=== PATIENT | female | born 1970 | race American Indian/Alaskan Native ===

== ENCOUNTER 2020-08-31 23:55 | Emergency (ER) | payer SELFPAY ==
[2020-09-01 00:41] LABS: Bilirubin,Urine NEG (Negative); Blood,Urine NEG (Negative); Color,Urine Yellow (Yellow); Mucus,Urine 3+ /HPF; Protein,Urine <15 mg/dL mg/dL (Negative)
[2020-09-01 00:44] LABS: HCG Qualitative,Urine Negative (Negative)
[2020-09-01 01:35] LABS: Basophils % (Auto) 0.2 % (0.0-1.8); Eosinophils # (Auto) 0.1 K/mm3 (0.0-0.4); Eosinophils % (Auto) 0.9 % (0.0-4.3); Hemoglobin 12.3 gm/dl (10.1-14.3); Lymphocytes # (Auto) 1.3 K/mm3 (1.2-5.4); Lymphocytes % (Auto) 10.9 % (13.4-35.0); Mean Corpuscular HGB Conc 33 % (30-34); Mean Corpuscular Volume 88 fl (79-97); Monocytes # (Auto) 0.8 K/mm3 (0.0-0.8); Monocytes % (Auto) 6.8 % (0.0-7.3); Platelet Count 239 K/mm3 (140-440); Red Blood Count 4.19 M/mm3 (3.65-5.03); Red Cell Distribution Width 14.5 % (13.2-15.2)
[2020-09-01 01:45] LABS: Alanine Aminotransferase 18 units/L (7-56); Albumin 4.1 g/dL (3.9-5); BUN/Creatinine Ratio 14; Blood Urea Nitrogen 11 mg/dL (7-17); Calcium 9.2 mg/dL (8.4-10.2); Hemolysis Index 3
[2020-09-01] MEDS ORDERED: MORPHINE 4 MG/1 ML INJ IV ONE (02:25)
[2020-09-01] MEDS ORDERED: ONDANSETRON 4 MG/2 ML INJ IV ONE (02:25)
--- NOTE | 2020-09-01 03:31 | Cat Scan Report ---
CT ABDOMEN AND PELVIS WITH CONTRAST HISTORY: Left lower quadrant abdominal pain COMPARISON: None TECHNIQUE: Routine abdominal and pelvic CT exam performed following intravenous contrast administrat ion. The patient received 100 mL IV Omnipaque 300. All CT scans at this location are performed using CT dose reduction for ALARA by means of automated exposure control. FINDINGS: CT ABDOMEN: Lung Bases: No significant abnormality. Liver: No significant abnormality. Biliary: No significant abnormality. Spleen: No significant abnormality. Unenlarged. Pancreas: No significant abnormality. Adrenals: No significant abnormality. Kidneys: No significant abnormality. Lymphatics: No lymphadenopathy. Vasculature: No significant abnormality. Bowel/Peritoneum: No significant abnormality. No free air. No free fluid. Normal appendix. CT PELVIC: : The uterus is enlarged and contains multiple masses consistent with uterine fibroids, some of whi ch are pedunculated. Lymphatics: No lymphadenopathy. Osseous Structures: No aggressive appearing osseous lesions. There is moderate degenerative disc dise ase at L5-S1. Additional Findings: None IMPRESSION: 1. No acute findings. 2. Significantly enlarged uterus with multiple masses or fibroids. Signer Name: Bossman Narvaez MD Signed: 09/01/2020 3:26 AM Workstation Name: [email or web address]
--- NOTE | 2020-09-01 04:01 | Emergency Department Report ---
ED Abdominal Pain HPI - General Chief Complaint: Abdominal Pain Stated Complaint: LT SIDE PAINS Source: patient Mode of arrival: Ambulatory Limitations: No Limitations - History of Present Illness Initial Comments: Patient is a 49-year-old -Honduran female with no past medical history who presents to the ED with complaint of acute onset persistent severe left lower quadrant abdominal pain that radiates to the low back and suprapubic area for the last 2 hours with nausea. Patient states that the pain started suddenly while she was at a club. Patient states that the pain is constant, sharp and that it gets worse with movement. Patient denies vomiting, diarrhea, dysuria, urinary frequency and urgency, vaginal bleeding, vaginal discharge, traumatic injury, heavy lifting, fever, chills, cough, chest pain or shortness of breath or change in vision. MD Complaint: abdominal pain (LLQ area), other (nausea) -: Sudden, hour(s) (2) Location: LLQ Radiation: LLQ, suprapubic Migration to: no migration Severity: severe Severity scale (0 -10): 10 Quality: cramping, aching, sharp Consistency: constant Improves With: nothing Worsens With: movement Associated Symptoms: denies other symptoms, nausea. denies: vomiting, diarrhea, fever, chills, constipation, dysuria, hematemesis, hematochezia, melena, hematuria, anorexia, syncope - Related Data Previous Rx's Medication Instructions Recorded Last Taken Type Hydrocodone Bit/Acetaminophen 1 tab PO Q6H PRN #12 tablet 08/18/13 Unknown Rx [Lortab 5-500 Tablet] Ondansetron [Zofran Odt] 4 mg PO Q6H PRN #8 tab.rapdis 08/18/13 Unknown Rx Naproxen 500 mg PO Q12H PRN #30 tablet 09/01/20 Unknown Rx Ondansetron [Zofran Odt] 4 mg PO Q6HR PRN #15 tab.rapdis 09/01/20 Unknown Rx traMADoL [Ultram] 50 mg PO Q6HR PRN #12 tablet 09/01/20 Unknown Rx Allergies Allergy/AdvReac Type Severity Reaction Status Date / Time No Known Allergies Allergy Unverified 08/18/13 08:27 ED Review of Systems ROS: Stated complaint: LT SIDE PAINS Other details as noted in HPI Constitutional: denies: chills, fever Eyes: denies: eye pain, eye discharge, vision change ENT: denies: ear pain, throat pain Respiratory: denies: cough, shortness of breath, wheezing Cardiovascular: denies: chest pain, palpitations Endocrine: no symptoms reported Gastrointestinal: abdominal pain (LLQ), nausea. denies: diarrhea Genitourinary: denies: urgency, dysuria, discharge Musculoskeletal: denies: back pain, joint swelling, arthralgia Skin: denies: rash, lesions Neurological: denies: headache, weakness, paresthesias Psychiatric: denies: anxiety, depression Hematological/Lymphatic: denies: easy bleeding, easy bruising ED Past Medical Hx - Past Medical History Previous Medical History?: No - Surgical History Past Surgical History?: Yes Additional Surgical History: C section - Social History Smoking Status: Never Smoker Substance Use Type: Alcohol - Medications Home Medications: Home Medications Medication Instructions Recorded Confirmed Last Taken Type Hydrocodone Bit/Acetaminophen 1 tab PO Q6H PRN #12 tablet 08/18/13 Unknown Rx [Lortab 5-500 Tablet] Ondansetron [Zofran Odt] 4 mg PO Q6H PRN #8 tab.rapdis 08/18/13 Unknown Rx Naproxen 500 mg PO Q12H PRN #30 tablet 09/01/20 Unknown Rx Ondansetron [Zofran Odt] 4 mg PO Q6HR PRN #15 tab.rapdis 09/01/20 Unknown Rx traMADoL [Ultram] 50 mg PO Q6HR PRN #12 tablet 09/01/20 Unknown Rx ED Physical Exam - General Limitations: No Limitations General appearance: alert, in no apparent distress - Head Head exam: Present: atraumatic, normocephalic, normal inspection - Eye Eye exam: Present: normal appearance, PERRL, EOMI Pupils: Present: normal accommodation - ENT ENT exam: Present: normal exam, normal orophraynx, mucous membranes moist, TM's normal bilaterally, normal external ear exam - Neck Neck exam: Present: normal inspection, full ROM - Respiratory Respiratory exam: Present: normal lung sounds bilaterally. Absent: respiratory distress, wheezes, rales, rhonchi, chest wall tenderness, accessory muscle use, decreased breath sounds, prolonged expiratory - Cardiovascular Cardiovascular Exam: Present: regular rate, normal rhythm, normal heart sounds. Absent: systolic murmur, diastolic murmur, rubs, gallop - GI/Abdominal GI/Abdominal exam: Present: soft, tenderness (Palpable LLQ and suprapubic tenderness), normal bowel sounds. Absent: guarding, rebound, hyperactive bowel sounds, organomegaly - Bi-manual exam: Present: other (Pelvic exam deferred) - Extremities Exam Extremities exam: Present: normal inspection, full ROM, normal capillary refill - Back Exam Back exam: Present: normal inspection, full ROM. Absent: tenderness, CVA tenderness (R), CVA tenderness (L), muscle spasm, paraspinal tenderness - Neurological Exam Neurological exam: Present: alert, oriented X3, CN II-XII intact, normal gait, reflexes normal - Psychiatric Psychiatric exam: Present: normal affect, normal mood - Skin Skin exam: Present: warm, dry, intact, normal color. Absent: rash ED Medical Decision Making - Lab Data Result diagrams: 09/01/20 00:50 09/01/20 00:50 - Radiology Data Radiology results: report reviewed, image reviewed Findings [address] [address] Cat Scan Report Signed Patient: RASHEED IZQUIERDO MR#: [id number] : 1970 Acct:[id number] Age/Sex: 49 / F ADM Date: 08/31/20 Loc: ED Attending Dr: Ordering Physician: TIARRA BRADFORD Date of Service: 09/01/20 Procedure(s): CT abdomen pelvis w con Accession Number(s): [id number] cc: TIARRA BRADFORD CT ABDOMEN AND PELVIS WITH CONTRAST HISTORY: Left lower quadrant abdominal pain COMPARISON: None TECHNIQUE: Routine abdominal and pelvic CT exam performed following intravenous contrast administration. The patient received 100 mL IV Omnipaque 300. All CT scans at this location are performed using CT dose reduction for ALARA by means of automated exposure control. FINDINGS: CT ABDOMEN: Lung Bases: No significant abnormality. Liver: No significant abnormality. Biliary: No significant abnormality. Spleen: No significant abnormality. Unenlarged. Pancreas: No significant abnormality. Adrenals: No significant abnormality. Kidneys: No significant abnormality. Lymphatics: No lymphadenopathy. Vasculature: No significant abnormality. Bowel/Peritoneum: No significant abnormality. No free air. No free fluid. Normal appendix. CT PELVIC: : The uterus is enlarged and contains multiple masses consistent with uterine fibroids, some of which are pedunculated. Lymphatics: No lymphadenopathy. Osseous Structures: No aggressive appearing osseous lesions. There is moderate degenerative disc disease at L5-S1. Additional Findings: None IMPRESSION: 1. No acute findings. 2. Significantly enlarged uterus with multiple masses or fibroids. Signer Name: Bossman Narvaez MD Signed: 09/01/2020 3:26 AM Workstation Name: [id number] Transcribed By: KAILASH Dictated By: Bossman Narvaez MD Electronically Authenticated By: Bossman Narvaez MD Signed Date/Time: 09/01/20325 DD/ 3 TD/TT: - Medical Decision Making This is a 49-year-old -Honduran female with no past medical history who presents to the ED with complaint of acute onset persistent severe left lower quadrant abdominal pain that radiates to the low back and suprapubic area for the last 2 hours with nausea. Patient states that the pain started suddenly while she was at a club. Patient states that the pain is constant, sharp and that it gets worse with movement. In the ED, patient is alert and oriented x3 and is not in distress. Patient was treated for pain and was given antiemetics. Lab test results were reviewed and showed mild acute leukocytosis of 11,800. The rest of the lab test results are nonactionable. Abdomen pelvis CT scan with contrast showed significantly enlarged uterus with multiple masses or fibroids. Otherwise no acute abnormalities. On reevaluation, patient's pain is well controlled medications. Patient will discharge home on pain medications and advised to follow-up with her SPECTROGRAPHER physician in 5 to 7 days for reevaluation. Patient was advised to return to the ED immediately if symptoms get worse. - Differential Diagnosis Appendicitis; Diverticulitis; Ovarian cyst; Fibroids; UTI; Kidney stones Critical care attestation.: If time is entered above; I have spent that time in minutes in the direct care of this critically ill patient, excluding procedure time. ED Disposition Clinical Impression: Acute abdominal pain in left lower quadrant Uterine fibroid Qualifiers: Uterine leiomyoma location: unspecified location Qualified Code(s): D25.9 - Leiomyoma of uterus, unspecified Disposition: - TO HOME OR SELFCARE Is pt being admited?: No Does the pt Need Aspirin: No Condition: Stable Instructions: Abdominal Pain (ED), Abdominal Pain, Adult, [id number], Uterine Fibroids Additional Instructions: All lab test results show no acute abnormalities. Abdomen pelvis CT scan with contrast shows multiple large uterine fibroids. Therefore take pain medications with food, drink plenty of fluids and follow-up with your SPECTROGRAPHER physician in 5 to 7 days for reevaluation. Return to the ED immediately if symptoms get worse. Prescriptions: Naproxen 500 mg PO Q12H PRN #30 tablet PRN Reason: Pain , Severe (7-10) traMADoL [Ultram] 50 mg PO Q6HR PRN #12 tablet PRN Reason: Pain Ondansetron [Zofran Odt] 4 mg PO Q6HR PRN #15 tab.rapdis PRN Reason: Nausea Referrals: [facility] [Provider Group] - 3-5 Days Time of Disposition: 04:02 Print Language: WOLOF
[2020-09-01 05:37] VITALS: BP 129/74
== END 2020-09-01 05:08 | disposition home or self-care (01) ==
LOC: ED 23:55
DX: D25.9 Leiomyoma of uterus, unspecified (principal); R10.32 Left lower quadrant pain; Z79.899 Other long term (current) drug therapy; Z98.890 Other specified postprocedural states
CPT/HCPCS: 36415; 74177; 80053; 81001; 81025; 85025; 96374; 96375; 99284; J2270; J2405; Q9967

== ENCOUNTER 2020-11-09 21:28 | Emergency (ER) | payer OTHER ==
[2020-11-09] MEDS ORDERED: SODIUM CHLORIDE 0.9% 1000 ML 1,000 ML IV ONE (23:04)
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
[2020-11-10 00:13] LABS: Basophils # (Auto) 0.1 K/mm3 (0.0-0.1); Basophils % (Auto) 0.4 % (0.0-1.8); Eosinophils % (Auto) 0.1 % (0.0-4.3); Hematocrit 38.1 % (30.3-42.9); Hemoglobin 12.3 gm/dl (10.1-14.3); Lymphocytes # (Auto) 1.2 K/mm3 (1.2-5.4); Mean Corpuscular HGB Conc 32 % (30-34); Mean Corpuscular Volume 89 fl (79-97); Monocytes # (Auto) 1.1 K/mm3 (0.0-0.8); Monocytes % (Auto) 6.4 % (0.0-7.3); Platelet Count 267 K/mm3 (140-440); Red Blood Count 4.28 M/mm3 (3.65-5.03); Red Cell Distribution Width 14.2 % (13.2-15.2)
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
[2020-11-10 00:26] LABS: INR 1.04 (0.87-1.13)
[2020-11-10 00:27] LABS: Alanine Aminotransferase 16 units/L (7-56); Albumin 4.3 g/dL (3.9-5); BUN/Creatinine Ratio 14; Blood Urea Nitrogen 11 mg/dL (7-17); Calcium 9.2 mg/dL (8.4-10.2); Hemolysis Index 2
[2020-11-10 00:31] LABS: Bilirubin,Direct < 0.2 mg/dL (0-0.2)
--- NOTE | 2020-11-10 01:17 | Cat Scan Report ---
CT CERVICAL SPINE WITHOUT CONTRAST INDICATION / CLINICAL INFORMATION: [facility] [place] TECHNIQUE: Axial CT images were obtained through the cervical spine. Sagittal and coronal reformatted images were produced. All CT scans at this location are performed using CT dose reduction for ALARA by means of automated exposure control. COMPARISON: None available. FINDINGS: VERTEBRAE: No significant abnormality. ALIGNMENT: No significant abnormality. DISC SPACES: No significant abnormality. FACET JOINTS: No significant abnormality. CRANIOCERVICAL JUNCTION:No significant abnormality. SPINAL CANAL: No significant abnormality. PARASPINAL SOFT TISSUES: No significant abnormality. ADDITIONAL FINDINGS: None. LUNG APICES: No significant abnormality of visualized lungs. IMPRESSION: 1. No significant abnormality. Signer Name: Lexa Clinton MD Signed: 11/10/2020 1:12 AM Workstation Name: [id number]
--- NOTE | 2020-11-10 01:30 | Cat Scan Report ---
CT CHEST, ABDOMEN, AND PELVIS WITH IV CONTRAST INDICATION / CLINICAL INFORMATION: [facility] [place]. TECHNIQUE: Axial CT images were obtained through the chest, abdomen, and pelvis after 100 cc of Omnipaque [address] scans at this location are performed using CT dose reduction for ALARA by means of automated exposure control. COMPARISON: CT scan dated 09/01/2020 FINDINGS: HEART: No significant abnormality. THORACIC AORTA: No significant abnormality. MEDIASTINUM and VERÓNICA: No significant abnormality. LUNGS: No acute air space or interstitial disease. PLEURA: No significant pleural effusion. No pneumothorax. ADDITIONAL CHEST FINDINGS: None. LIVER: No significant abnormality. GALLBLADDER: No significant abnormality. BILE DUCTS: No significant abnormality. PANCREAS: No significant abnormality. SPLEEN: No significant abnormality. ADRENALS: No significant abnormality. RIGHT KIDNEY and URETER: No significant abnormality. LEFT KIDNEY and URETER: No significant abnormality. STOMACH and SMALL BOWEL: No significant abnormality. COLON: No significant abnormality. APPENDIX: No significant abnormality. PERITONEUM: No free fluid. No free air. No fluid collection. LYMPH NODES: No significant adenopathy. AORTA and ARTERIES: No significant abnormality. IVC and VEINS: No significant abnormality. URINARY BLADDER: No significant abnormality. REPRODUCTIVE ORGANS: There is an enlarged fibroid uterus. ADDITIONAL FINDINGS: None. SKELETAL SYSTEM: No significant abnormality. IMPRESSION: 1. No intra-abdominal organ injury is identified. No acute abnormality is seen. There is an enlarged fibroid uterus. Signer Name: Lexa Clinton MD Signed: 11/10/2020 1:25 AM Workstation Name: [id number]
--- NOTE | 2020-11-10 01:30 | Cat Scan Report ---
CT CHEST, ABDOMEN, AND PELVIS WITH IV CONTRAST INDICATION / CLINICAL INFORMATION: [facility] [place]. TECHNIQUE: Axial CT images were obtained through the chest, abdomen, and pelvis after 100 cc of Omnipaque [address] scans at this location are performed using CT dose reduction for ALARA by means of automated exposure control. COMPARISON: CT scan dated 09/01/2020 FINDINGS: HEART: No significant abnormality. THORACIC AORTA: No significant abnormality. MEDIASTINUM and VERÓNICA: No significant abnormality. LUNGS: No acute air space or interstitial disease. PLEURA: No significant pleural effusion. No pneumothorax. ADDITIONAL CHEST FINDINGS: None. LIVER: No significant abnormality. GALLBLADDER: No significant abnormality. BILE DUCTS: No significant abnormality. PANCREAS: No significant abnormality. SPLEEN: No significant abnormality. ADRENALS: No significant abnormality. RIGHT KIDNEY and URETER: No significant abnormality. LEFT KIDNEY and URETER: No significant abnormality. STOMACH and SMALL BOWEL: No significant abnormality. COLON: No significant abnormality. APPENDIX: No significant abnormality. PERITONEUM: No free fluid. No free air. No fluid collection. LYMPH NODES: No significant adenopathy. AORTA and ARTERIES: No significant abnormality. IVC and VEINS: No significant abnormality. URINARY BLADDER: No significant abnormality. REPRODUCTIVE ORGANS: There is an enlarged fibroid uterus. ADDITIONAL FINDINGS: None. SKELETAL SYSTEM: No significant abnormality. IMPRESSION: 1. No intra-abdominal organ injury is identified. No acute abnormality is seen. There is an enlarged fibroid uterus. Signer Name: Lexa Clinton MD Signed: 11/10/2020 1:25 AM Workstation Name: [id number]
--- NOTE | 2020-11-10 01:39 | Cat Scan Report ---
CT HEAD WITHOUT CONTRAST INDICATION / CLINICAL INFORMATION: [facility]. TECHNIQUE: All CT scans at this location are performed using CT dose reduction for ALARA by means of automated exposure control. COMPARISON: None available. FINDINGS: HEMORRHAGE: None. EXTRA-AXIAL SPACES: Normal in size and morphology for the patient's age. VENTRICULAR SYSTEM: Normal in size and morphology for the patient's age. CEREBRAL PARENCHYMA: No significant abnormality. No acute territorial infarct. MIDLINE SHIFT / HERNIATION: None. CEREBELLUM / BRAINSTEM: No significant abnormality. ORBITS: Normal as visualized. SOFT TISSUES: No significant abnormality. SKULL: No significant abnormality. PARANASAL SINUSES / MASTOID AIR CELLS: Normal as visualized. ADDITIONAL FINDINGS: None. IMPRESSION: 1. No acute intracranial abnormality. Signer Name: Lexa Clinton MD Signed: 11/10/2020 1:35 AM Workstation Name: [id number]
[2020-11-10] MEDS ORDERED: KETOROLAC 30 MG/1 ML INJ IV ONE (01:44)
[2020-11-10 03:10] VITALS: BP 118/69
== END 2020-11-10 03:12 | disposition home or self-care (01) ==
LOC: ED 21:28
DX: S93.402A Sprain of unspecified ligament of left ankle, initial encounter (principal); S16.1XXA Strain of muscle, fascia and tendon at neck level, initial encounter; S40.011A Contusion of right shoulder, initial encounter; S80.11XA Contusion of right lower leg, initial encounter; V28.4XXA Motorcycle driver injured in noncollision transport accident in traffic accident, initial encounter; Y93.89 Activity, other specified; Y92.410 Unspecified street and highway as the place of occurrence of the external cause; Y99.8 Other external cause status
CPT/HCPCS: 36415; 70450; 71260; 72125; 73030; 73590; 73610; 74177; 80048; 80076; 84703; 85025; 85610; 85730; 96361; 96374; 99284; J1885; Q9967; 80320; G0480